=== PATIENT | male | born 1955 | race Caucasian/White ===

== ENCOUNTER 2024-01-01 12:55 | Outpatient (AMB) | payer OTHER, SELFPAY ==
[2024-01-01 13:02] VITALS: BP 133/68; PULSE 67; BMI 26.8
--- NOTE | 2024-01-01 13:02 | MHC.OFFVIS ---
Vital Signs 01/01/24 13:02 Height 5 ft 7 in Weight 171 lb 1.259 oz BMI 26.8 BP 133/68 Blood Pressure Location Lt brachial Position Sitting Pulse 67 Intake Visit Reasons: Colonoscopy screening Intake Note: Matti presents as a new patient for colonoscopy screening. CC: Patient reports that [place] [facility] [place] Patient reports that he has IBS but he is now taking Linzess and symptoms are well managed. Patient reports that he has shingles right know. Allergies clindamycin Allergy (Intermediate, Verified 01/01/24 13:13) Rash doxycycline Adverse Reaction (Mild, Verified 01/01/24 13:13) Nausea HPI HPI Colonoscopy screening: Details: 68-year-old male here for preprocedural meeting to discuss a screening colonoscopy. He is referred by Dr. Edilberto Martin of [facility] in [place]. PMX HAYLEY COPD Chronic kidney disease Coronary artery disease HIV High cholesterol Depression with adjustment disorder Peripheral neuropathy Somatic disorder involving pain Chronic nausea History of prostate cancer History of acute kidney injury * SURGICAL HISTORY Prostatectomy Left inguinal hernia repair - bilateral Lumbar diskectomy CABG x2 Melanoma skin lesion removed from leg RIGHT-SIDED facial nerve schwannoma History of CVA chronic lacunar infarcts Carotid stenosis appendectomy partial colectomy tonsillectomy * ALLERGIES Clindamycin Doxycycline * LABS SUPPLIED BY PRIMARY: 07/2023 GFR OF 40, NORMAL HEPATIC PANEL, UNREMARKABLE CBC NEGATIVE QUANTIFERON TEST FOR TUBERCULOSIS TODAY'S VISIT He tells me he had a + COloguard test. He had a prior colonoscopy many years ago that was normal ? 11 years. He suffers CIC controlled with LInzess,no upper GI problems. There are no prior problems with anesthesia or sedation. He has HAYLEY and his cardiac disease is well controlled. He has HIV well controlled on viral therapy. There is no known FHX of CRC or polyps. [facility] Medical History History of prostate cancer Melanoma of skin, site unspecified History of CVA (cerebrovascular accident) Acute kidney injury Surgical History H/O melanoma excision History of appendectomy H/O colonoscopy S/P CABG x 2 H/O lumbar discectomy H/O left inguinal hernia repair H/O prostatectomy History of prostate biopsy Social History Alcohol intake: current Alcohol intake frequency: holidays/special occasions only Cigarette Packs Per Day: 10 Years Smoked: since patient was 15 y/o Use of substances other than those prescribed or required for medical reasons: No Review of Systems Const Denies fatigue, Denies fever(s), Denies night sweats, Denies poor appetite and Denies weight loss ENT Reports Normal hearing present, Denies dental pain, Denies dysphagia, Denies hearing loss, Denies mouth pain, Denies odynophagia, Denies throat swelling, Denies tongue swelling and Reports other (Dentition adequate) Card Reports no additional complaints Resp Reports no additional complaints GI Details: Denies abdominal pain, Denies melena, Denies bloating, Denies hematochezia, Reports constipation, Denies GI cramping, Denies dysphagia, Denies excessive flatus, Denies early satiety, Denies heartburn, Denies diarrhea, Denies nausea, Denies odynophagia, Denies vomiting and Denies hematemesis Skin/Breast Denies pruritus, Denies lesions, Denies rash and Denies jaundice Neuro Reports Normal hearing present and Denies Abnormal speech present Endo Denies fatigue Aller/Immun Denies throat swelling and Denies tongue swelling Physical Exam Vital Signs: Last Vital Signs Pulse 67 01/01/24 13:02 BP 133/68 01/01/24 13:02 BMI result Body Mass Index 26.8 Const General: cooperative, no acute distress, well developed and well groomed Nutritional Appearance: average body habitus and well nourished Orientation/consciousness: oriented to person, oriented to place and oriented to time Limitations: No language barrier HEENT Head: Yes normocephalic and Yes atraumatic Eyes General: appearance normal, both eyes and all related structures Pupils: Equal, round and reactive pupils present Neck Neck: Yes normal visual inspection and Yes no lymphadenopathy Thyroid: Thyroid normal Resp Effort & Inspection: normal respiratory effort and able to speak in complete sentences Auscultation: clear to auscultation bilaterally Cardio Rate: regular rate Rhythm: regular rhythm Heart sounds: Normal, physiologic split S2 sound present Peripheral pulses: radial pulses present and posterior tibial pulses present GI Inspection: No distended, No Abdominal panniculus present and Yes obesity Palpation (GI): Soft to palpation, nontender, no guarding, not rigid and No hepatosplenomegaly present Percussion: Yes normal to percussion Auscultation: normal bowel sounds Rectal Exam - Male: Yes deferred Abdomen image: 1. shingles rash 2. mild umbilcal hernia Skin General skin exam: no rashes or lesions noted, turgor normal, skin not dry, no jaundice, No spider nevi and no striae Rashes: no rashes Nails: normal Neuro General: oriented to person, oriented to place and oriented to time Cranial nerves: Yes Equal, round and reactive pupils present and Yes Normal hearing present Speech: No Abnormal speech present Extrem General: Yes normal to inspection, No clubbing, No cyanosis and No edema Psych Appearance: grossly normal and well kempt Mental Status: mental status grossly normal Speech and movement: Normal speech and movement present Affect: normal affect Attitude: cooperative Thought process: Normal thought process present and not confabulating Thought content: Normal thought content present Insight: Fair insight present (Psych) Judgement: Fair judgement present (Psych) Assessment & Plan Assessment & Plan (1) Pre-op examination: Code(s): Z01.818 - Encounter for other preprocedural examination Category: Medical (2) HIV (human immunodeficiency virus infection): Code(s): Z21 - Asymptomatic human immunodeficiency virus [HIV] infection status Category: Medical (3) Chronic kidney disease (CKD) stage G3b/A1, moderately decreased glomerular filtration rate (GFR) between 30-44 mL/min/1.73 square meter and albuminuria creatinine ratio less than 30 mg/g: Code(s): N18.32 - Chronic kidney disease, stage 3b Category: Medical (4) COPD (chronic obstructive pulmonary disease): Code(s): J44.9 - Chronic obstructive pulmonary disease, unspecified Category: Medical (5) HAYLEY (obstructive sleep apnea): Code(s): G47.33 - Obstructive sleep apnea (adult) (pediatric) Category: Medical (6) Constipation: Code(s): K59.00 - Constipation, unspecified Category: Medical Plan He tells me he had a + COloguard test. He had a prior colonoscopy many years ago that was normal ? 11 years. He suffers CIC controlled with LInzess,no upper GI problems. There are no prior problems with anesthesia or sedation. He has HAYLEY and his cardiac disease and his COPD is well controlled. He has HIV well controlled on viral therapy. There is no known FHX of CRC or polyps. Orders: Orders Colonoscopy - GI Use Only 01/01/24 Z01.818 - Encounter for other preprocedural examination Medications: New sodium,potassium,mag sulfates 17.5-3.13-1.6 gram (Suprep Bowel Prep Kit) 480 mL orally; FOR COLONOSCOPY PREP 354 mL 0RF Coding Level of Care Code New Pt Level 3 (68440) Diagnoses Pre-op examination Z01.818 HIV (human immunodeficiency virus infection) Z21 Chronic kidney disease (CKD) stage G3b/A1, moderately decreased glomerular filtration rate (GFR) between 30-44 mL/min/1.73 square meter and albuminuria creatinine ratio less than 30 mg/g N18.32 COPD (chronic obstructive pulmonary disease) J44.9 HAYLEY (obstructive sleep apnea) G47.33 Constipation K59.00
== END 2024-01-01 13:52 | disposition home or self-care (01) ==
PROVIDERS: PCP Internal Medicine; Visit Provider Nurse Practitioner
DX: Z01.818 Encounter for other preprocedural examination (principal); Z12.11 Encounter for screening for malignant neoplasm of colon; K59.00 Constipation, unspecified; Z21 Asymptomatic human immunodeficiency virus [HIV] infection status; J44.9 Chronic obstructive pulmonary disease, unspecified; G47.33 Obstructive sleep apnea (adult) (pediatric)
CPT/HCPCS: S0285

== ENCOUNTER → 2024-01-01 12:55 | Outpatient (BNVA) | payer OTHER, SELFPAY | PROVIDERS: PCP Internal Medicine; Visit Provider Nurse Practitioner ==